=== PATIENT | male | born 1985 | race Two or more races ===

== ENCOUNTER 2020-01-15 17:54 | Emergency (ER) | payer MEDICAID ==
[~2020-01-15] VITALS: Ht 162.6 cm; Wt 72.6 kg
[2020-01-15 18:01] VITALS: BP 117/78
[2020-01-15] MEDS ORDERED: Tetracaine 0.5% Opth 4ml Soln RIGHT EYE ONE (18:15)
[2020-01-15] MEDS ORDERED: Fluorescein Strips RIGHT EYE ONE (18:15)
--- NOTE | 2020-01-15 19:05 | Emergency Room Report ---
History of Present Illness General Chief Complaint: Allergic Reaction Source: Patient Present Illness HPI PT reports discomfort and swelling of the lower lid of the right eye. Pt. relates symptoms began gradually since beginning Topamax for headaches on 01/09. Pt. reports symptoms were much more prominent today. He reports some mild itching. He reports he takes Topamax every other day, and on days he does not take the medication his symptoms improve slightly. Pt. denies symptoms in the left eye. He denies contact lens use or glasses. Pt. reports he is under the care of a neurologist who rx'd the Topamax. Pt. denies having eye examination. Pt. denies nausea or vomiting. He denies photophobia. He denies suspicion of having a fb in his eye. He denies scratching sensation. He denies Pain, Discharge, Redness, Loss of vision, Floaters, Flashing lights, Diplopia/blurry vision, Increased tearing. He denies rashes. 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 Denney Is my supervising Physician whom patient management has been discussed with. Diagnostic Impression: Primary Impression: Conjunctivitis of right eye Qualified Codes: H10.11 - Acute atopic conjunctivitis, right eye Additional Impressions: Eye pain Qualified Codes: H57.11 - Ocular pain, right eye Frequent headaches ER Course PT reports discomfort and swelling of the lower lid of the right eye. Pt. relates symptoms began gradually since beginning Topamax for headaches on 01/09. Pt. reports symptoms were much more prominent today. He reports some mild itching. He reports he takes Topamax every other day, and on days he does not take the medication his symptoms improve slightly. Pt. denies symptoms in the left eye. He denies contact lens use or glasses. Pt. reports he is under the care of a neurologist who rx'd the Topamax. Pt. denies having eye examination. Pt. denies nausea or vomiting. He denies photophobia. He denies suspicion of having a fb in his eye. He denies scratching sensation. He denies Pain, Discharge, Redness, Loss of vision, Floaters, Flashing lights, Diplopia/blurry vision, Increased tearing. He denies rashes. - Pt [reports/denies] Contact lens use. Ddx considered but are not limited to: corneal abrasion, acute glaucoma, globe rupture, FB, Corneal Ulcer, conjunctivitis. Iridis Vital signs: are WNL, pt. is afebrile H&PE are most consistent with: corneal abrasion ORDERS: -Tetracaine and Fluorescein Stain of the [ ] eye: -No increased fluorescein uptake, there is no involvement of the iris or pupil. Negative Campbell sign. Pt. had positive relief of pain with tetracaine drops. there was negative evidence of Fb, deep ulcer, or rupture. TONOPEN PRESSURES are 10,9,10 in the right eye, and left eye was 10 ED INTERVENTIONS: none at this time. DISCHARGE: At this time pt. is stable for d/c to home. Will provide printed patient care instructions, and any necessary prescriptions. Care plan and follow up instructions have been discussed with the patient prior to discharge. . Last Vital Signs Date Time Temp Pulse Resp B/P (MAP) Pulse Ox O2 Delivery O2 Flow Rate FiO2 01/15/20 18:08 61 16 Room Air 01/15/20 18:01 97.7 117/78 100 Disposition: HOME, SELF-CARE Condition: Stable Scripts Acetamin/Butalbital/Caffeine* (FIORICET*) 1 Ea Tab 1 TAB ORAL Q6H, #9 TAB 0 Refills Prov: Ivon Akers 01/15/20 Azelastine Hcl (AZELASTINE HCL) 6 Ml Drops 1 DROP OP BID, #6 ML Prov: Ivon Akers 01/15/20 Referrals: NOT CHOSEN IPA/,REFERRING (PCP) Rebecca Celis Comp. [facility] Patient Instructions: Allergic Conjunctivitis, [id number], Azelastine eye solution Additional Instructions: Take medications as directed. Follow up with a Primary Care Provider in 3-5 days For a referral to have NEUROLOGIST Evaluation, even if your symptoms have resolved. 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 - Please note that this Emergency Department Report was dictated using [employer] programmer analyst technology software, occasionally this can lead to erroneous entry secondary to interpretation by the dictation equipment. Ivon Akers Jan 15, 2020 19:05
[2020-01-15] MEDS ORDERED: FIORICET1 EA ORAL (19:06)
[2020-01-15] MEDS ORDERED: AZELASTINE HCL6 ML OP (19:06)
[2020-01-15 19:15] VITALS: BP 120/70
== END 2020-01-15 19:15 | disposition home or self-care (01) ==
LOC: EMR 18:20
DX: H10.11 Acute atopic conjunctivitis, right eye (principal); H57.11 Ocular pain, right eye; R51.9 Headache, unspecified
CPT/HCPCS: 99282